=== PATIENT | male | born 1960 | race Caucasian/White ===

== ENCOUNTER → 2016-07-09 | Outpatient (CLI) | payer OTHER ==
[~2016-07-09] MED LIST: ACETAMINOPHEN/O1 TA1 PO; ANAPROX DS550 MG PO; ATENOLOL25 MG PO; BLOOD PRESSURE; CLEOCIN150 MG PO; DARVOCET N 1001 TAB PO; DELTASONE20 M1 PO; DICLOFENAC POTA50 MG PO; HYDROCHLOROTHIA25 M1 PO; HYDROCODONE BIT1 T11 PO; IBU800 M1 PO; NORFLEX100 MG PO; PAMELOR50 MG PO; SIMVASTATIN20 MG PO; SKELAXIN800 MG PO; VICODIN ES 7501 TAB PO
== END | disposition home or self-care (01) ==
LOC: MRI 07-01 11:00
DX: M17.12 Unilateral primary osteoarthritis, left knee (principal); M25.562 Pain in left knee; G89.29 Other chronic pain; M25.511 Pain in right shoulder

== ENCOUNTER → 2017-11-17 | Outpatient (CLI) | payer OTHER ==
[~2017-11-17] MED LIST changes: +CLINDAMYCIN HC300 MG PO; +Motrin,Rufen800 MG PO
== END | disposition home or self-care (01) ==
LOC: ORTHO 02:13
DX: M17.12 Unilateral primary osteoarthritis, left knee (principal); M25.462 Effusion, left knee

== ENCOUNTER 2017-11-23 21:01 | Emergency (ER) | payer OTHER ==
[~2017-11-23] VITALS: Ht 170.1 cm; Wt 81.6 kg
[~2017-11-23 21:01] MED LIST changes: -CLINDAMYCIN HC300 MG PO; -Motrin,Rufen800 MG PO
[2017-11-23] MEDS ORDERED: CLINDAMYCIN HC300 MG PO (21:29)
[2017-11-23] MEDS ORDERED: Motrin,Rufen800 MG PO (21:29)
== END 2017-11-23 21:36 | disposition home or self-care (01) ==
LOC: ED 21:01
DX: L02.31 Cutaneous abscess of buttock (principal); Z88.8 Allergy status to other drugs, medicaments and biological substances; Z79.899 Other long term (current) drug therapy

== ENCOUNTER → 2018-07-27 | Outpatient (CLI) | payer OTHER ==
[~2018-07-27] MED LIST changes: +CLINDAMYCIN HC300 MG PO; +Motrin,Rufen800 MG PO
== END | disposition home or self-care (01) ==
LOC: ORTHO 01:12
DX: M17.12 Unilateral primary osteoarthritis, left knee (principal); M25.462 Effusion, left knee

== ENCOUNTER 2021-03-27 11:26 | Emergency (ER) | payer OTHER ==
[~2021-03-27] VITALS: Ht 167.6 cm; Wt 83.9 kg
[2021-03-27] MEDS ORDERED: GOOD NEIGHBOR L10 MG PO (11:45)
[2021-03-27] MEDS ORDERED: AMLODIPINE BESY10 MG PO (11:45)
[2021-03-27] MEDS ORDERED: CETIRIZINE HYDR10 MG PO (11:45)
[2021-03-27] MEDS ORDERED: ZESTORETIC 20-1 EACH PO (11:46)
[2021-03-27] MEDS ORDERED: FERROUS SULFAT325 MG PO (11:46)
[2021-03-27] MEDS ORDERED: METHOCARBAMOL500 M1 PO (14:26)
[2021-03-27] MEDS ORDERED: IBUPROFEN600 MG PO (14:26)
== END 2021-03-27 15:04 | disposition home or self-care (01) ==
LOC: ED 11:26
DX: G89.29 Other chronic pain (principal); M54.42 Lumbago with sciatica, left side; Z88.8 Allergy status to other drugs, medicaments and biological substances; Z79.899 Other long term (current) drug therapy

== ENCOUNTER 2021-07-26 18:50 | Emergency (ER) | payer OTHER ==
[~2021-07-26] VITALS: Ht 167.6 cm; Wt 83.9 kg
[~2021-07-26 18:50] MED LIST changes: +AMLODIPINE BESY10 MG PO; +CETIRIZINE HYDR10 MG PO; +FERROUS SULFAT325 MG PO; +GOOD NEIGHBOR L10 MG PO; +IBUPROFEN600 MG PO; +METHOCARBAMOL500 M1 PO; +ZESTORETIC 20-1 EACH PO
== END 2021-07-26 19:09 | disposition home or self-care (01) ==
LOC: ED 18:50
DX: R11.0 Nausea (principal); Z98.890 Other specified postprocedural states; Z79.899 Other long term (current) drug therapy; Z88.6 Allergy status to analgesic agent

== ENCOUNTER 2021-11-23 14:59 | Emergency (ER) | payer OTHER ==
[2021-11-23] MEDS ORDERED: MORPHINE SULFAT15 MG PO (16:36)
[2021-11-23] MEDS ORDERED: VOLTAREN ARTHRI20 GM T (16:36)
[2021-11-23] MEDS ORDERED: PERCOCET 5-3251 EACH PO (16:40)
== END 2021-11-23 17:04 | disposition home or self-care (01) ==
LOC: ED 14:59
DX: M54.50 Low back pain, unspecified (principal); Z76.5 Malingerer [conscious simulation]; Z88.8 Allergy status to other drugs, medicaments and biological substances; Z79.899 Other long term (current) drug therapy; Z98.890 Other specified postprocedural states

== ENCOUNTER 2022-02-28 15:19 | Emergency (ER) | payer OTHER ==
[~2022-02-28] VITALS: Wt 81.6 kg
[~2022-02-28 15:19] MED LIST changes: +MORPHINE SULFAT15 MG PO; +PERCOCET 5-3251 EACH PO; +VOLTAREN ARTHRI20 GM T
[2022-02-28 16:57] LABS: BASO # 0.1 10*3/uL (0.0-0.1); BASO % 0.6 % (0.0-1.0); EOS # 0.3 10*3/uL (0.0-0.4); HEMATOCRIT 34.6 % (42.0-52.0); LYMPH # 1.6 10*3/uL (1.3-4.4); LYMPH % 12.7 % (27.0-41.0); MEAN CELL VOLUME 93.3 fl (80.0-94.0); MEAN CORPUSCULAR HGB 31.3 pg (27.0-31.0); MEAN CORPUSCULAR HGB CONC 33.5 g/dl (33.0-37.0); MEAN PLATELET VOLUME 9.3 fl (9.6-12.3); MONO # 1.4 10*3/uL (0.1-1.0); MONO % 10.9 % (3.0-9.0); NEUT # 9.1 10*3/uL (2.3-7.9); NEUT % 73.1 % (47.0-73.0); PLATELET COUNT AUTOMATED 432 10*3/uL (130-400); RED BLOOD COUNT 3.71 10*6/uL (4.50-5.90); WHITE BLOOD COUNT 12.5 10*3/uL (4.8-10.8)
[2022-02-28 17:10] LABS: ACT PARTIAL THROMBO TIME 29.9 SECONDS (20.0-32.1)
[2022-02-28 17:21] LABS: CREATININE 1.63 mg/dL (0.70-1.30); POTASSIUM 4.2 mmol/L (3.5-5.1); TOTAL PROTEIN 7.3 gm/dL (6.4-8.2)
== END 2022-02-28 20:15 | disposition short-term general hospital (02) ==
LOC: ED 15:19
PROVIDERS: Emergency Medicine
DX: S72.002A Fracture of unspecified part of neck of left femur, initial encounter for closed fracture (principal); M25.512 Pain in left shoulder; Z88.8 Allergy status to other drugs, medicaments and biological substances; Z79.899 Other long term (current) drug therapy; Z98.890 Other specified postprocedural states; W18.39XA Other fall on same level, initial encounter; Y93.89 Activity, other specified; Y92.89 Other specified places as the place of occurrence of the external cause; Y99.8 Other external cause status

== ENCOUNTER 2023-12-10 20:49 | Emergency (ER) | payer OTHER ==
[~2023-12-10] VITALS: Ht 167.6 cm; Wt 79.4 kg
[2023-12-10] MEDS ORDERED: Acetaminophen/Hydrocodone HP 10/325 PO ONE (21:40)
[2023-12-10] MEDS ORDERED: PREDNISONE50 MG PO (22:09)
[2023-12-10] MEDS ORDERED: methylPREDNISolone sod succ 125 MG VIAL IM ONE (22:10)
== END 2023-12-10 22:34 | disposition home or self-care (01) ==
LOC: ED 20:49
DX: S76.011A Strain of muscle, fascia and tendon of right hip, initial encounter (principal); M54.50 Low back pain, unspecified; Z88.8 Allergy status to other drugs, medicaments and biological substances; Z79.899 Other long term (current) drug therapy; Z98.890 Other specified postprocedural states; W18.39XA Other fall on same level, initial encounter; Y93.89 Activity, other specified; Y92.89 Other specified places as the place of occurrence of the external cause; Y99.8 Other external cause status

== ENCOUNTER 2024-03-13 11:29 | Emergency (ER) | payer OTHER ==
[~2024-03-13] VITALS: Ht 167.6 cm; Wt 77.1 kg
[~2024-03-13 11:29] MED LIST changes: +PREDNISONE50 MG PO
[2024-03-13] MEDS ORDERED: ULTRA-LIGHT RO1 EACH MC (14:06)
== END 2024-03-13 14:13 | disposition home or self-care (01) ==
LOC: ED 11:29
DX: S43.402A Unspecified sprain of left shoulder joint, initial encounter (principal); S70.02XA Contusion of left hip, initial encounter; I10 Essential (primary) hypertension; Z88.8 Allergy status to other drugs, medicaments and biological substances; Z98.890 Other specified postprocedural states; W10.8XXA Fall (on) (from) other stairs and steps, initial encounter; Y93.89 Activity, other specified; Y92.89 Other specified places as the place of occurrence of the external cause; Y99.8 Other external cause status